=== PATIENT | female | born 1980 | race Caucasian/White ===

== ENCOUNTER 2022-07-18 09:30 | Outpatient (REF) | payer BC, SELFPAY ==
[2022-07-18 11:38] LABS: Hematocrit 38.4 % (37.0-47.0); Hemoglobin 12.6 g/dl (12.0-16.0); Mean Corpuscular HGB Conc 32.8 g/dl (31.0-35.0); Mean Corpuscular Hemoglobin 29.2 pg (27.0-33.0); Mean Corpuscular Volume 89.1 fL (80.0-98.0); Mean Platelet Volume 10.8 fL (9.4-12.3); Platelet Count 226 X10*3/uL (160-400); Red Blood Count 4.31 X10*6/uL (4.20-5.50); Red Cell Distribution Width 11.6 % (11.0-16.0); White Blood Count 5.2 X10*3/uL (4.8-10.8)
[2022-07-18 12:32] LABS: Alanine Aminotransferase 10 U/L (0-31); Alkaline Phosphatase 54 U/L (39-117); Anion Gap 11 (12-20); Aspartate Amino Transferase 16 U/L (5-31); Bilirubin Total 0.5 mg/dL (0.0-1.0); Blood Urea Nitrogen 6 mg/dL (9-16); Calcium 8.9 mg/dL (8.4-10.2); Carbon Dioxide 27 mmol/L (22-29); Chloride 105 mmol/L (96-108); Cholesterol 175 mg/dL; Estimated Glomerular Filt Rate > 60; Glucose Fasting 78 mg/dL (60-99); HDL Cholesterol 73 mg/dL; LDL Cholesterol Calculated 85 mg/dl; Potassium 3.8 mmol/L (3.3-5.1); Sodium 139 mmol/L (135-145); Total Protein 6.8 g/dL (6.5-8.0); Triglycerides 86 mg/dL
[2022-07-18 12:33] LABS: TSH reflex Free T4 1.22 uIU/mL (0.32-4.0)
== END 2022-07-18 09:31 | disposition home or self-care (01) ==
LOC: HO.WFDLDS 09:30
PROVIDERS: Visit Provider Nurse Practitioner Family
DX: Z00.00 Encounter for general adult medical examination without abnormal findings (principal); K58.9 Irritable bowel syndrome, unspecified; K21.9 Gastro-esophageal reflux disease without esophagitis
CPT/HCPCS: 36415; 80053; 80061; 84443; 85027

== ENCOUNTER 2023-09-05 11:48 | Day surgery (SDC) | payer BC, SELFPAY ==
[2023-09-03 14:51] VITALS: BMI 21.3
--- NOTE | 2023-09-04 09:03 | HO.ANESPROP2 ---
Documented by User: Sylvia Calix NP 09/04/23 09:03 HPI - Anesthesia Eval Consult details Narrative: 42yo F for Upper Endoscopy Suboxone daily PMFSH Active Problems Active Problems: All Active Problems Rash of back (Acute) Physical exam, annual (Acute) Laboratory tests ordered as part of a complete physical exam (CPE) (Acute) Irritable bowel syndrome (IBS) (Acute) Chronic GERD (Acute) Past Medical History Medical History Anxiety Broken wrist Shingles outbreak Chronic GERD Irritable bowel syndrome (IBS) Family History Family History Father Hypertension High cholesterol Mother Thyroid disease Maternal Grandmother Thyroid disease Paternal Grandmother Cancer Paternal Grandfather Cancer Sister Thyroid disease Other Asthma Surgical History Surgical History History of surgery on wrist Social History Social History Housing: House Alcohol intake: current Patient Tobacco Use Status: Never used Tobacco e-Cigarette/Vaping Use: Never Used service: No Current occupational status: employed Current occupation: [employer] Cognitive needs: No Hearing needs: No Vision needs: No Meds Allergies Allergy/AdvReac Type Severity Reaction Status Date / Time No Known Allergies Allergy Verified 06/23/22 12:17 Home Medications ?Medication ?Instructions ?Recorded ?Confirmed ?Last Taken ?Type buprenorphine 2 mg-naloxone 0.5 mg 1 tab sublingual DAILY 06/23/22 09/05/23 09/05/23 07:00 History sublingual tablet drospirenone 3 mg-ethinyl 1 tab PO DAILY 06/23/22 09/03/23 Unknown History estradiol 0.02 mg tablet (LILIAM (28)) pantoprazole 40 mg tablet,delayed 40 mg PO DAILY 09/03/23 09/03/23 Unknown History release Exam Height,Weight and Vital Signs: Height 5 ft 6 in Weight 59.988 kg Assessment and Plan Assessment Anesthesia Assessment: Chart Reviewed Documented by User: Kelly Duvall MD 09/05/23 13:08 [facility] Past Medical History Medical History Anxiety Broken wrist Shingles outbreak Chronic GERD Irritable bowel syndrome (IBS) Family History Family History Father Hypertension High cholesterol Mother Thyroid disease Maternal Grandmother Thyroid disease Paternal Grandmother Cancer Paternal Grandfather Cancer Sister Thyroid disease Other Asthma Surgical History Surgical History History of surgery on wrist History of Problems with Anesthesia: No Social History Social History Housing: House Alcohol intake: current Patient Tobacco Use Status: Never used Tobacco e-Cigarette/Vaping Use: Never Used service: No Current occupational status: employed Current occupation: [employer] Cognitive needs: No Hearing needs: No Vision needs: No Meds Allergies Allergy/AdvReac Type Severity Reaction Status Date / Time No Known Allergies Allergy Verified 06/23/22 12:17 Home Medications ?Medication ?Instructions ?Recorded ?Confirmed ?Last Taken ?Type buprenorphine 2 mg-naloxone 0.5 mg 1 tab sublingual DAILY 06/23/22 09/05/23 09/05/23 07:00 History sublingual tablet drospirenone 3 mg-ethinyl 1 tab PO DAILY 06/23/22 09/03/23 Unknown History estradiol 0.02 mg tablet (LILIAM (28)) pantoprazole 40 mg tablet,delayed 40 mg PO DAILY 09/03/23 09/03/23 Unknown History release Exam Airway Mallampati Class: II TM Dist: >3cm Neck ROM: Full Loose/Missing/Broken Teeth: No Heart: RRR Lungs: CTA Assessment and Plan Assessment Anesthesia Assessment: Anesthesia Plan Discussed Final Anesthetic Review History of Problems with Anesthesia: No NPO: Yes ASA Class: II Final Preanesthetic Review: Meds/Allgs Chart Reviewed, Consent Obtained/Reviewed and Anes Risks/Benef Reviewed Patient Risk: Low Procedure Risk: Intermediate Anesthetic Plan Anesthetic Plan: MAC: Disposition: Standard PACU
[2023-09-05 11:59] VITALS: BMI 21.7
[2023-09-05 12:14] VITALS: BP 113/50; PULSE 80; RESP 16; TEMP 36.6; O2SAT 99
[2023-09-05 12:16] LABS: UPreg QC Valid YES; Urine Pregnancy NEGATIVE (NEGATIVE)
[2023-09-05] MEDS: Lactated Ringers 1,000 ML 100 ML IVCONT (12:24)
--- NOTE | 2023-09-05 12:59 | MHC.SHP ---
Pre-Procedural Eval Section A - 24 Hr Update-Section A only Date of Service: 09/05/23 The patient is an INPATIENT: No Changes since office visit: No Cold of Flu in the past 2 weeks, No New Medical Problems, No Changes in Medication and No Patient answered all questions The patient has been examined within 24 hours of the surgical procedure. The History & Physical has been completed within 30 days and I have reviewed it.: Yes Section B - Complete if H&P > 30 days Chief Complaint: Gastro-esophageal reflux disease without esophagit Allergies: Allergies Allergy/AdvReac Type Severity Reaction Status Date / Time No Known Allergies Allergy Verified 06/23/22 12:17 Plan I have reviewed the history and physical and performed a pertinent physical examination on my patient. No changes have occurred unless specified. Time Spent With Patient Time: Total time managing care of this patient today ____ minutes.
[2023-09-05 13:25] VITALS: BP 104/52; PULSE 73; RESP 16; TEMP 36.5; O2SAT 97
[2023-09-05 13:40] VITALS: BP 115/61; PULSE 64; RESP 18; TEMP 36.5; O2SAT 100
--- NOTE | 2023-09-05 14:16 | OP_ITS ---
DATE OF SERVICE: 09/05/2023 SURGEON: Xavier Costello MD INDICATIONS: Gastroesophageal reflux disease. PREOPERATIVE DIAGNOSIS: POSTOPERATIVE DIAGNOSIS: PROCEDURE PERFORMED: Upper endoscopy with biopsy. ESTIMATED BLOOD LOSS: COMPLICATIONS: ANESTHESIA: Monitored anesthesia care. ASSISTANTS: SPECIMENS: DESCRIPTION OF PROCEDURE: A history and physical was performed. The risks and benefits of the procedure were explained to the patient and informed consent was obtained. The patient was placed in the left lateral decubitus position. The Olympus video gastroscope was introduced into the esophagus, stomach, and duodenum. Examination was performed and the scope was removed. She tolerated the procedure well and was returned to recovery area in stable condition. FINDINGS: Esophagus: The esophagus was normal. There was no esophagitis. Biopsies were obtained from the EG junction. Stomach: The stomach showed no evidence of masses, ulcers, or polyps. The antral biopsies were obtained to evaluate for H pylori. Duodenum: The bulb and 2nd portion were normal. Biopsies were obtained from the 2nd portion. IMPRESSION: Normal upper endoscopy, gastroesophageal reflux disease. RECOMMENDATION: Follow up the biopsy results. MD JOSS Yan/GILSONL / [id number]
== END 2023-09-05 13:57 | disposition home or self-care (01) ==
PROVIDERS: Nurse Practitioner; PCP Nurse Practitioner Family; Visit Provider Internal Medicine Gastroenterology
PROC: 0DJ08ZZ Inspection of Upper Intestinal Tract, Via Natural or Artificial Opening Endoscopic (ICD-10-PCS; CPT 43235; principal; 2023-09-05 13:00)
DX: K21.9 Gastro-esophageal reflux disease without esophagitis (principal); K58.0 Irritable bowel syndrome with diarrhea; F41.9 Anxiety disorder, unspecified; Z79.899 Other long term (current) drug therapy; Z87.891 Personal history of nicotine dependence
CPT/HCPCS: 43239; 81025; 88305; 88313; 88342; J1596; J2704

== ENCOUNTER 2024-05-14 10:41 | Outpatient (AMB) | payer BC, SELFPAY ==
--- NOTE | 2024-05-14 10:52 | MHC.PC.OV ---
Vital Signs 05/14/24 10:58 Height 5 ft 6 in Weight 134 lb 6 oz BMI 21.7 BP 107/56 L Blood Pressure Location Rt brachial Position Sitting Respiration 16 Pulse 65 Pulse Source Pulse Oximeter Temp 98.1 F Temp Source Oral Pulse Oximetry (%) 99 Oxygen Delivery Method Room Air Intake Visit Reasons: Requesting meds re: anxiety during flying Intake Note: patient here requesting meds for anxiety during flying. Radiographer Cardiac Catheterization Required: No Is last menstrual period known: Yes Last menstrual period: 04/28/24 Post menopausal: No Patient : No Allergies No Known Allergies Allergy (Verified 05/14/24 11:45) Medication List - Last Reconciled 05/14/24 by Bonnie Luna CNP buprenorphine-naloxone 2-0.5 mg 1 tab sublingual DAILY drospirenone-ethinyl estradiol 3-0.02 mg (LILIAM (28)) 1 tab PO DAILY pantoprazole 40 mg PO DAILY Tobacco use date assessed: 05/14/24 Dental Screening Dental Screen Date: 05/14/24 Did you have a dental visit in the last 12 months?: Yes Did you have a dental problem in the last 6 months where you did not have access to dental care?: No Was dental information given to patient?: Patient has dentist HPI HPI Comments History of Present Illness Details 43-year-old female presents with request for medication for anxiety related to flying. She does not like flying and flying to [place] this week. She took Ativan before with good effect. Hydroxyzine was ineffective. She denies acute symptoms at this time. [facility] Medical History Anxiety Broken wrist Shingles outbreak Chronic GERD Irritable bowel syndrome (IBS) Surgical History History of surgery on wrist Family History Father Hypertension High cholesterol Mother Thyroid disease Maternal Grandmother Thyroid disease Paternal Grandmother Cancer Paternal Grandfather Cancer Sister Thyroid disease Other Asthma Social History Housing: House Alcohol intake: current Patient Tobacco Use Status: Never used Tobacco e-Cigarette/Vaping Use: Never Used service: No Current occupational status: employed Current occupation: [employer] Cognitive needs: No Hearing needs: No Vision needs: No Female Reproductive History Menstrual Date of last menstrual period: 04/28/24 Questionnaire PHQ-9 Over the last 2 weeks, how often have you been bothered by any of the following problems? 1. Little interest or pleasure in doing things: not at all 2. Feeling down, depressed, or hopeless: not at all 3. Trouble falling or staying asleep, or sleeping too much: not at all 4. Feeling tired or having little energy: not at all 5. Poor appetite or overeating: not at all 6. Feeling bad about yourself - or that you are a failure or have let yourself or your family down: not at all 7. Trouble concentrating on things, such as reading the newspaper or watching television: not at all 8. Moving or speaking so slowly that other people could have noticed. Or the opposite - being so fidgety or restless that you have been moving around a lot more than usual: not at all 9. Thoughts that you would be better off or of hurting yourself in some way: not at all Total score: 0 Depression Screening Interpretation: Negative Depression Screening Done: Yes 70961 - PHQ-9 Billing: Yes Source: Developed by Drs. Juan Miguel Pop, Dionne Metcalf, Anthony Rajput and colleagues, with an educational rhoda from [employer]. Thrive Questionnaire Date Thrive assessed: 05/14/24 I am a: Patient What is your living situation today?: I have a steady place to live Within the past 12 months, did the food you bought not last and you didn't have the money to get more?: Never true Within the past 12 months, did you worry whether your food would run out before you got money to buy more?: Never true Do you have trouble paying for medicines?: No Do you have trouble getting transportation to medical appointments?: No Do you have trouble paying your heating and electricity bill?: No Do you have trouble taking care of your child, family member or friend?: No Do you have trouble with day-to-day activities such as bathing, preparing meals, shopping, managing finances, etc.?: No Are you currently unemployed and looking for a job?: No Are you interested in more education?: No Please select the resources that you would like help with: None Currently or been in a relationship where the following occur: No concerns reported THRIVE Score: 0 AUDIT C Alcohol Use Questionnaire (AUDIT-C) 1. How often do you have a drink containing alcohol?: 2-4 times a month 2. How many drinks containing alcohol do you have on a typical day when you are drinking?: 3 or 4 3. How often do you have six or more drinks on one occasion?: Never Total Score: 3 LAYLA-7 AMB Questionnaire LAYLA-7 Date LAYLA - 7 assessed: 05/14/24 Feeling nervous, anxious, or on edge: 1 = Several days Not being able to stop or control worryin = Several days Worrying too much about different things: 0 = Not at all Trouble relaxin = Not at all Being so restless that it is hard to sit still: 0 = Not at all Becoming easily annoyed or irritable: 0 = Not at all Feeling afraid as if something awful might happen: 0 = Not at all Total LAYLA-7 score (0-4 normal; 5-9 mild; 10-14 moderate; 15-21 severe): 2 Source: Developed by Drs. Juan Miguel Pop, Dionne Metcalf, Anthony Rajput and colleagues, with an educational rhoda from [employer]. LAYLA-7 Assessment Billing LAYLA-7 Assessment Tool: LAYLA-7 Assessment 56571 Review of Systems Const Details: Const Denies chills, Denies fatigue, Denies fever(s), Denies headache(s) and Denies weakness ENT Denies dizziness and Denies headache(s) Card Denies chest pain, Denies lightheadedness, Denies dyspnea and Denies other (Palpitations) Resp Denies cough, Denies dyspnea, Denies wheezing and Denies other ( shortness of breath) GI Denies abdominal pain, Denies melena, Denies hematochezia, Denies change in bowel habits, Denies dyspepsia and Denies nausea Denies hematuria and Denies dysuria Musc Denies abnormal gait, Denies myalgias, Denies arthralgias, Denies numbness and Denies tingling Skin/Breast Denies rash, Denies unusual bruising and Denies wounds Neuro Denies abnormal gait, Denies dizziness, Denies headache(s), Denies memory loss, Denies numbness, Denies Sensory deficit (Neuro), Denies tingling and Denies weakness Psych Denies anxiety, Denies depression, Denies memory loss Endo Denies cold intolerance, Denies fatigue, Denies heat intolerance, Denies polydipsia and Denies polyuria Aller/Immun Denies wheezing Physical exam (Primary Care) Vital Signs: Last Vital Signs Temp 98.1 F 05/14/24 10:58 Pulse 65 05/14/24 10:58 Resp 16 05/14/24 10:58 BP 107/56 L 05/14/24 10:58 Pulse Ox 99 05/14/24 10:58 Oxygen Delivery Method Room Air 05/14/24 10:58 BMI result Body Mass Index 21.7 Tobacco/Smoking Status: Tobacco use Status Tobacco use date assessed 05/14/24 05/14/24 11:01 Patient Tobacco Use Status Never used Tobacco 05/14/24 11:01 e-Cigarette/Vaping Use Never Used 05/14/24 11:01 PHQ-9: PHQ-9 Score PHQ-9: Total score 0 05/14/24 11:01 Depression Screening Interpretation: Negative Thrive Assessment: Date of Thrive Assessment Date Thrive assessed 05/14/24 05/14/24 11:01 Currently or been in a relationship where the following occur: No concerns reported Const Other: General: no acute distress and well developed Nutritional Appearance: well nourished Orientation/consciousness: patient oriented x3 HENMT Head: Yes normocephalic and Yes atraumatic Eyes General: appearance normal, both eyes and all related structures Pupils: Equal, round and reactive pupils present EOM: EOMs intact bilaterally Resp Effort & Inspection: normal respiratory effort Auscultation: clear to auscultation bilaterally Cardio Rate: regular rate Rhythm: regular rhythm Heart sounds: S1 normal heart sound present, S2 normal heart sound present, no gallops, no murmurs and no rubs GI Palpation (GI): No Abdominal aortic bruit present, Soft to palpation, nontender, No hepatosplenomegaly present and No Rebound tenderness present Auscultation: normal bowel sounds General: Yes no CVA tenderness Back/Spine/Pelvis Back: no CVA tenderness Cervical Spine: cervical ROM normal and No Cervical spine tenderness Thoracic/Lumbar Spine: thoraco-lumbar ROM normal, No pain with thoraco-lumbar ROM, No thoracic spinal tenderness and No lumbar spinal tenderness Extrem General: Yes normal to inspection, No edema and No calf tenderness Skin General: warm and dry. Normal skin color. Normal skin turgor Lesions: no lesions Rashes: no rashes Trauma: no lacerations or abrasions Wounds: no wounds Nails: normal Neuro General: patient oriented x3, gait normal and no focal neuro deficit Cranial nerves: Yes Equal, round and reactive pupils present Cognition (Neuro): normal cognition Gait exam (Neuro): Normal gait present Sensory Exam: No Sensory deficit (Neuro) Psych Appearance: grossly normal Affect: normal affect Attitude: cooperative Thought process: Normal thought process present Coding Level of Care Code Est Pt Level 3 (47100) Diagnoses Anxiety with flying F40.243 Laboratory tests ordered as part of a complete physical exam (CPE) Z00.00 Additional Codes LAYLA-7 Assessment Billing - LAYLA-7 Assessment Tool: LAYLA-7 Assessment 54009 ([id number]) PHQ-9 - 68880 - PHQ-9 Billing: Yes ([id number]) Assessment & Plan Assessment & Plan (1) Anxiety with flying: Code(s): F40.243 - Fear of flying Category: Medical Plan: Reports anxiety with flying and that she is flying to [place] over the weekend. Ativan 0.5 mg twice daily as needed ordered; advised take as prescribed. Perform lab work and follow-up an extended physical exam. Verbalized understanding and agreed with the treatment plan. (2) Laboratory tests ordered as part of a complete physical exam (CPE): Code(s): Z00.00 - Encounter for general adult medical examination without abnormal findings Category: Medical Plan: Fasting labs ordered as part of a complete physical exam. Advised to fast for at least 10 hours before getting labs drawn. May drink water Verbalized understanding and agreed with treatment plan. Orders: Orders Complete Blood Count Auto Diff Today Z00.00 - Encounter for general adult medical examination without abnormal findings Comprehensive [place]. Panel Fast Today K58.9 - Irritable bowel syndrome, unspecified Lipid Panel Today Z00.00 - Encounter for general adult medical examination without abnormal findings Microalbumin, Random (w Creat) Today Z00.00 - Encounter for general adult medical examination without abnormal findings Vitamin D 25-OH Total Today Z00.00 - Encounter for general adult medical examination without abnormal findings TSH reflex Free T4 Today Z00.00 - Encounter for general adult medical examination without abnormal findings UA CC w/rflx Micro + Cult Today Z00.00 - Encounter for general adult medical examination without abnormal findings Medications: New lorazepam (Ativan) 0.5 mg PO BID PRN 4 tabs 0RF anxiety
[2024-05-14 10:58] VITALS: BP 107/56; PULSE 65; RESP 16; TEMP 36.7; O2SAT 99; BMI 21.7
--- OUTSIDE RECORDS SUMMARY | 2024-05-14 13:14 | XMS_ITS ---
Author Organization [facility] Address [address] [place] [phone] Care Team Providers Care Data Software Engineer Name Role Phone Bonnie Luna N.P. Primary Care Provider Ajith Costello Jr, Xavier Savage REASON FOR VISIT pathology Encounters Encounter Location Date Provider Diagnosis [facility] [address] [place] [phone] 09/12/2023 Xavier Costello Jr PLAN OF TREATMENT No Information
--- OUTSIDE RECORDS SUMMARY | 2024-05-14 13:14 | XMS_ITS ---
Author Organization [facility] Address [address] [place] [phone] Care Team Providers Care Chemical Plant Technical Director Name Role Phone Bonnie Luna N.P. Primary Care Provider Ajith Costello Jr, Xavier Savage REASON FOR VISIT REFLUX Encounters Encounter Location Date Provider Diagnosis [facility] [address] [place] [phone] 10/24/2023 Xavier Costello Jr PLAN OF TREATMENT No Information
--- OUTSIDE RECORDS SUMMARY | 2024-05-14 13:14 | XMS_ITS ---
Author Organization [facility] Address [address] [place] [phone] Care Team Providers Care Upholstery Handler Name Role Phone Bonnie Luna N.P. Primary Care Provider Ajith Costello Jr, Xavier Savage REASON FOR VISIT refill pantoprazole MEDICATIONS Medication SIG (Take, Route, Frequency, Duration) Notes Start Date End Date Status Pantoprazole Sodium 40 MG 1 tablet Orall y Once a day for 90 days 07/18/2023 Active Encounters Encounter Location Date Provider Diagnosis [facility] [address] [place] [phone] 01/31/2024 Xavier Costello Jr PLAN OF TREATMENT Medication Medication Name Sig Start Date Stop Date Notes Pantoprazole Sodium 40 MG 1 tablet Orall y Once a day for 90 days 07/18/2023
--- OUTSIDE RECORDS SUMMARY | 2024-05-14 13:15 | XMS_ITS | Patient Health Record ---
Author Organization [facility] Address [address] [place] [address] Care Team Providers Care Finisher Wallboard And Plasterboard Name Role Phone Bonnie Luna N.P. Primary Care Provider Ajith Costello Jr Xavier Unavailable ALLERGIES No Known Allergies RESULTS Component Value Reference Range Notes Ur Preg Test Reviewed date:09/06/2023 09:04:58 AM Interpretation: Performing Lab:[facility], [address] [place] [phone] Notes/Report: Urine NEGATIVE NEGATIVE This test was developed to detect early . False negative results may occur after the 5th - 7th week of when using this test method. If clinically indicated, consider a serum hCG. Pathology Reviewed date:09/12/2023 09:18:36 AM Interpretation: Performing Lab:[facility], [address] [place] [phone] Notes/Report: REASON FOR REFERRAL No Information MEDICATIONS Medication SIG (Take, Route, Frequency, Duration) Notes Start Date End Date Status LILIAM Active Pantoprazole Sodium 40 MG 1 tablet Orall y Once a day for 90 days 07/18/2023 Active Buprenorphine HCl-Naloxone HCl 2-0.5 MG Sublingual for 28 Active IMMUNIZATIONS Vaccine Route Administration Date Status Comme nts Influenza Unknown 08/06/2023 Refused SOCIAL HISTORY Tobacco Use: Social History Observation Description Date Details (start date - stop date) Former Smoker NA - NA Sex Assigned At : Social History Observation Description Sex Assigned At Unknown Tobacco Use/Smoking Question Answer Notes Patient is a former smoker Alcohol Screen Question Answer Notes Did you have a drink contain ing alcohol in the past year? Yes How often did you have a dri nk containing alcohol in the past year? 2 to 4 times a month (2 points) How many drinks did you have on a typical day when you were drinking in the past year? 1 or 2 drinks (0 point) How often did you have 6 or more drinks on one occasion in the past year? Never (0 point) Points 2 Interpretation Negative PROBLEMS Problem Type ICD Code Onset Dates Problem Status W/U Status Risk SNOMED Code Notes Problem Gastro-esophageal reflux disease without esophagitis (K21.9) Active confirmed Gastro-esophag eal reflux disease without esophagitis (178163394) Problem Irritable bowel syndrome, unspecified type (K58.9) Active confirmed 70626120 Problem Gastroesophageal reflux disease, unspecified whether esophagitis present (K21.9) Active confirmed [id number] VITAL SIGNS Temperature 97.8 degrees Fahrenheit 08/06/2023 Blood pressure diastolic 00 mm Hg 08/06/2023 Height 66 in 08/06/2023 Blood pressure systolic 000 mm Hg 08/06/2023 Weight 132 lb 4 oz lbs 08/06/2023 BMI 21.34 kg/m2 08/06/2023 Encounters Encounter Location Date Provider Diagnosis [facility] [address], [place] [phone] 08/22/2023 Xavier Costello Jr [facility] Outpatient [address], [place] [phone] 09/05/2023 Xavier Costello Jr Gastro-esophageal reflux disease without esophagitis K21.9 [facility] [address] [place] [phone] 10/24/2023 Xavier Costello Jr [facility] [address] [place] [phone] 08/06/2023 Xavier Costello Jr Gastroesophageal reflux disease, unspecified whether esophagitis present K21.9 [facility] [address] [place] [phone] 07/17/2023 Xavier Costello Jr [facility] [address] [place] [phone] 07/25/2023 Xavier Costello Jr [facility] [address] [place] [phone] 08/02/2023 Xavier Costello Jr [facility] [address] [place] [address] 09/12/2023 Xavier Costello Jr [facility] [address] [place] [address] 01/31/2024 Xavier Costello Jr ASSESSMENTS Encounter Date Diagnosis Assessment Notes Treatment Notes Treatment Clinical Notes 09/05/2023 Gastro-esophageal reflux disease without esophagitis (ICD-10 - K21.9) 08/06/2023 Gastroesophageal ref lux disease, unspecified whether esophagitis present (ICD-10 - K21.9) PLAN OF TREATMENT Future Test Test Name Order Date UPPER GI ENDOSCOPY 08/06/2023 Insurance Providers Payer Name Payer Address Payer Phone Subscriber Number Group Number Insured Name Patient Relationship to Insured Coverage Start Date Coverage End Date [facility] [address] [place] [address] [phone] [id number] GREG CHRISTIAN Self - patient is the insured MEDICAL (GENERAL) HISTORY Medical History History ICD Code Irritable bowel syndrome with diarrhea p redominance anxiety Gastroesophageal reflux disease Surgical History Surgery Date(Month/Year)
== END 2024-05-14 11:56 | disposition home or self-care (01) ==
PROVIDERS: PCP Nurse Practitioner Family; Visit Provider Nurse Practitioner Family
DX: F40.243 Fear of flying (principal); Z00.00 Encounter for general adult medical examination without abnormal findings

== ENCOUNTER → 2024-05-14 10:41 | Outpatient (BNVA) | payer BC, SELFPAY | PROVIDERS: PCP Nurse Practitioner Family; Visit Provider Nurse Practitioner Family | DX: F40.243 Fear of flying (principal) | CPT/HCPCS: 96127 ==

== ENCOUNTER 2024-06-03 09:33 | Outpatient (REF) | payer BC, SELFPAY ==
[2024-06-03 11:20] LABS: MANUAL DIFF FLAG NO
[2024-06-03 11:33] LABS: Basophils Absolute Auto 0.1 X10*3/uL (0.0-0.2); Basophils Percent Auto 1.1 % (0-2); Eosinophils Absolute Auto 0.1 X10*3/uL (0.0-0.4); Hematocrit 38.3 % (37.0-47.0); Hemoglobin 11.9 g/dl (12.0-16.0); Imm Gran Abs Auto 0.01 X10*3/uL (0.00-0.03); Imm Gran Pct Auto 0.2 % (0.0-0.4); Lymphocytes Absolute Auto 2.8 X10*3/uL (1.2-4.9); Lymphocytes Percent Auto 42.3 % (20-40); Mean Corpuscular HGB Conc 31.1 g/dl (31.0-35.0); Mean Corpuscular Hemoglobin 27.1 pg (27.0-33.0); Mean Corpuscular Volume 87.2 fL (80.0-98.0); Mean Platelet Volume 10.2 fL (9.4-12.3); Monocytes Absolute Auto 0.5 X10*3/uL (0.1-1.2); Monocytes Percent Auto 7.1 % (2-11); Neutrophils Absolute Auto 3.1 x10*3/uL (2.0-8.3); Neutrophils Percent Auto 47.3 % (45-73); Platelet Count 287 X10*3/uL (160-400); Red Blood Count 4.39 X10*6/uL (4.20-5.50); Red Cell Distribution Width 12.1 % (11.0-16.0); White Blood Count 6.5 X10*3/uL (4.8-10.8)
[2024-06-03 11:49] LABS: Alanine Aminotransferase 10 U/L (0-31); Alkaline Phosphatase 70 U/L (39-117); Anion Gap 12 (12-20); Aspartate Amino Transferase 16 U/L (5-31); Bilirubin Total 0.4 mg/dL (0.0-1.0); Blood Urea Nitrogen 12 mg/dL (9-16); Calcium 9.1 mg/dL (8.4-10.2); Carbon Dioxide 28 mmol/L (22-29); Chloride 104 mmol/L (96-108); Cholesterol 176 mg/dL (<200); Estimated Glomerular Filt Rate > 60; Glucose Fasting 75 mg/dL (60-99); HDL Cholesterol 77 mg/dL (>40); LDL Cholesterol Calculated 81 mg/dL (<100); Potassium 3.9 mmol/L (3.3-5.1); Sodium 140 mmol/L (135-145); Total Protein 7.9 g/dL (6.5-8.0); Triglycerides 93 mg/dL (<150)
[2024-06-03 12:08] LABS: TSH reflex Free T4 1.46 uIU/mL (0.32-4.0); Vitamin D 25-OH Total 30.8 ng/mL (>30)
[2024-06-03 15:18] LABS: Appearance Urine Clear; Color Urine Yellow; Glucose Urine UA Negative (Negative); Leukocyte Esterase Urine Trace (Negative); Nitrite Urine Negative (Negative); Specific Gravity - Urine 1.015 (1.005-1.025); UMIC TRIGGER UACC YES; Urine Blood Trace (Negative); Urine Ketones Negative (Negative); Urine Protein Negative (Neg-Trace)
[2024-06-03 15:24] LABS: Bacteria Urine None Seen (None Seen); Hyaline Casts Urine 0-2 /LPF (0-2); RBC Urine 0-2 /HPF (0-2); WBC Urine 0-5 /HPF (0-5)
[2024-06-03 15:45] LABS: Creatinine Urine 117.89 mg/dL; Microalbum/Creatinine Ratio Ur 24.5 ug/mg cr (<30)
== END 2024-06-03 09:34 | disposition home or self-care (01) ==
LOC: HO.WFDLDS 09:33
PROVIDERS: Visit Provider Nurse Practitioner Family
DX: Z00.00 Encounter for general adult medical examination without abnormal findings (principal); K58.9 Irritable bowel syndrome, unspecified
CPT/HCPCS: 36415; 80053; 80061; 81001; 82043; 82306; 82570; 84443; 85025

== ENCOUNTER → 2024-06-09 09:52 | Outpatient (BNVA) | payer BC, SELFPAY | PROVIDERS: PCP Nurse Practitioner Family; Visit Provider Nurse Practitioner Family | DX: Z00.00 Encounter for general adult medical examination without abnormal findings (principal) | CPT/HCPCS: 96127 ==

== ENCOUNTER → 2024-06-09 09:52 | Outpatient (AMB) | payer BC, SELFPAY ==
--- NOTE | 2024-06-09 09:58 | A.OFFPC_ITS ---
Vital Signs 06/09/24 10:13 Height 5 ft 6 in Weight 135 lb BMI 21.8 BP 110/54 L Blood Pressure Location Lt brachial Position Sitting Respiration 16 Pulse 68 Pulse Source Pulse Oximeter Temp 98.1 F Temp Source Oral Pulse Oximetry (%) 100 Oxygen Delivery Method Room Air Intake Visit Reasons: CPE Intake Note: patient here for CPE Mental Health Nurse Practitioner Required: No Is last menstrual period known: Yes Last menstrual period: 05/26/24 Post menopausal: No Patient : No Allergies No Known Allergies Allergy (Verified 06/09/24 10:29) Medication List - Last Reconciled 06/09/24 by Bonnie Luna CNP buprenorphine-naloxone 2-0.5 mg 1 tab sublingual DAILY drospirenone-ethinyl estradiol 3-0.02 mg (LILIAM (28)) 1 tab PO DAILY lorazepam (Ativan) 0.5 mg PO BID PRN pantoprazole 40 mg PO DAILY Tobacco use date assessed: 06/09/24 Dental Screening Dental Screen Date: 06/09/24 Did you have a dental visit in the last 12 months?: Yes Did you have a dental problem in the last 6 months where you did not have access to dental care?: No Was dental information given to patient?: Patient has dentist HPI HPI Comments History of Present Illness Details 43-year-old female presents for an exten ded physical exam. Acute issue(s) - None Past Medical History - GERD, IBS Social History - Former smoker, quit 10 years ago. Hist ory of vaping nicotine, quit 10 years ago. Drinks 2 glasses of wine once weekly. Denies recreational drug use - Has been making healthy dietary choice s. Exercises routinely. Generally sleep well Health maintenance - Last eye exam was several years ago. Referred to Ophthalmology for routine eye care - Last dental visit was last week. She f ollows up with her dentist every 6 months - Last tetanus vaccine was more than 10 years ago; declines Tdap vaccine - Has not been vaccinated for the flu ; declines vaccination - Last pap smear test was in 02/2024 mavis [facility]: Normal. Record not available. 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 - Last mammogram was 2 months ago at [facility]: Normal [facility] Medical History Anxiety Broken wrist Shingles outbreak Chronic GERD Irritable bowel syndrome (IBS) Surgical History History of surgery on wrist Family History Father Hypertension High cholesterol Mother Thyroid disease Maternal Grandmother Thyroid disease Paternal Grandmother Cancer Paternal Grandfather Cancer Sister Thyroid disease Other Asthma Social History Housing: House Alcohol intake: current Patient Tobacco Use Status: Former Tobacco user e-Cigarette/Vaping Use: Never Used service: No Current occupational status: employed Current occupation: [employer] Current occupational exposures/hazards: No Cognitive needs: No Hearing needs: No Vision needs: No Female Reproductive History Menstrual Date of last menstrual period: 05/26/24 Questionnaire PHQ-9 Over the last 2 weeks, how often have you been bothered by any of the following problems? 1. Little interest or pleasure in doing things: not at all 2. Feeling down, depressed, or hopeless: not at all 3. Trouble falling or staying asleep, or sleeping too much: not at all 4. Feeling tired or having little energy: not at all 5. Poor appetite or overeating: several days 6. Feeling bad about yourself - or that you are a failure or have let yourself or your family down: not at all 7. Trouble concentrating on things, such as reading the newspaper or watching television: not at all 8. Moving or speaking so slowly that other people could have noticed. Or the opposite - being so fidgety or restless that you have been moving around a lot more than usual: not at all 9. Thoughts that you would be better off or of hurting yourself in some way: not at all Total score: 1 Depression Screening Interpretation: Negative Depression Screening Done: Yes 24190 - PHQ-9 Billing: Yes Source: Developed by Drs. Juan Miguel Pop, Dionne Metcalf, Anthony Rajput and colleagues, with an educational rhoda from [employer]. Thrive Questionnaire Date Thrive assessed: 06/09/24 I am a: Patient What is your living situation today?: I have a steady place to live Within the past 12 months, did the food you bought not last and you didn't have the money to get more?: Never true Within the past 12 months, did you worry whether your food would run out before you got money to buy more?: Never true Do you have trouble paying for medicines?: No Do you have trouble getting transportation to medical appointments?: No Do you have trouble paying your heating and electricity bill?: No Do you have trouble taking care of your child, family member or friend?: No Do you have trouble with day-to-day activities such as bathing, preparing meals, shopping, managing finances, etc.?: No Are you currently unemployed and looking for a job?: No Are you interested in more education?: No Please select the resources that you would like help with: None Currently or been in a relationship where the following occur: No concerns reported THRIVE Score: 0 AUDIT C Alcohol Use Questionnaire (AUDIT-C) 1. How often do you have a drink containing alcohol?: 2-4 times a month 2. How many drinks containing alcohol do you have on a typical day when you are drinking?: 1 or 2 3. How often do you have six or more drinks on one occasion?: Less than monthly Total Score: 3 Score Reviewed/Action Taken: Yes LAYLA-7 AMB Questionnaire LAYLA-7 Date LAYLA - 7 assessed: 06/09/24 Feeling nervous, anxious, or on edge: 0 = Not at all Not being able to stop or control worryin = Not at all Worrying too much about different things: 0 = Not at all Trouble relaxin = Not at all Being so restless that it is hard to sit still: 0 = Not at all Becoming easily annoyed or irritable: 0 = Not at all Feeling afraid as if something awful might happen: 0 = Not at all Total LAYLA-7 score (0-4 normal; 5-9 mild; 10-14 moderate; 15-21 severe): 0 Source: Developed by Drs. Juan Miguel Pop, Dionne Metcalf, Anthony Rajput and colleagues, with an educational rhoda from [employer]. LAYLA-7 Assessment Billing LAYLA-7 Assessment Tool: LAYLA-7 Assessment 53246 Review of Systems Const Details: Denies chills, Denies fatigue, Denies fever(s), Denies headache(s) and Denies weakness HEENT Denies change in vision, Denies dizziness, Denies headache(s), Denies hearing loss, Denies nasal congestion, Denies sinus pain, Denies sinus pressure and Denies sore throat Card Denies chest pain, Denies lightheadedness, Denies dyspnea and Denies other (palpitations) Resp Denies cough, Denies dyspnea and Denies wheezing GI Denies abdominal pain, Denies melena, Denies hematochezia, Denies change in bowel habits, Denies dyspepsia and Denies nausea Denies hematuria and Denies dysuria Musc Denies abnormal gait, Denies myalgias, Denies arthralgias, Denies numbness and Denies tingling Skin/Breast Denies rash, Denies unusual bruising and Denies wounds Neuro Denies abnormal gait, Denies dizziness, Denies headache(s), Denies memory loss, Denies numbness, Denies Sensory deficit (Neuro), Denies tingling and Denies weakness Psych Denies anxiety, Denies depression and Denies memory loss Endo Denies cold intolerance, Denies fatigue, Denies heat intolerance, Denies polydipsia and Denies polyuria Ángel/Lymph Denies easy bleeding and Denies easy bruising Aller/Immun Denies wheezing Physical exam (Primary Care) Tobacco/Smoking Status: Tobacco use Status Tobacco use date assessed 05/14/24 06/09/24 09:58 Patient Tobacco Use Status Never used Tobacco 06/09/24 09:58 e-Cigarette/Vaping Use Never Used 06/09/24 09:58 Depression Screening Interpretation: Negative Thrive Assessment: Date of Thrive Assessment Date Thrive assessed 05/14/24 06/09/24 09:58 Currently or been in a relationship where the following occur: No concerns reported Const Other: General: no acute distress, well developed, alert and awake Nutritional Appearance: well nourished Orientation/consciousness: patient oriented x3 HENMT Head: Yes normocephalic and Yes atraumatic Ears: hearing grossly normal bilaterally and TM's normal bilaterally General nose exam: Normal external nose present and Normal nares present Mouth: Normal oral and palatal mucosa present and moist mucous membranes Teeth and gingiva: dentition normal Throat: Yes oropharynx normal Eyes Pupils: Equal, round and reactive pupils present and Pupil accommodation reflex normal EOM: EOMs intact bilaterally Neck Neck: Yes normal visual inspection, Yes no lymphadenopathy and Yes trachea midline Thyroid: Thyroid normal Carotids: no bruits Lymphatic: no lymphadenopathy noted Chest Chest palpation & inspection: normal inspection of the chest Resp Effort & Inspection: normal respiratory effort Auscultation: clear to auscultation bilaterally Cardio Rate: regular rate Rhythm: regular rhythm Heart sounds: S1 normal heart sound present, S2 normal heart sound present, no gallops, no murmurs and no rubs Bruits: no abdominal aortic bruits and no carotid bruits GI Palpation (GI): No Abdominal aortic bruit present, Soft to palpation, nontender, No hepatosplenomegaly present and No Rebound tenderness present Auscultation: normal bowel sounds General: Yes no CVA tenderness Back/Spine/Pelvis Back: no CVA tenderness Cervical Spine: cervical ROM normal and No Cervical spine tenderness Thoracic/Lumbar Spine: thoraco-lumbar ROM normal, No pain with thoraco-lumbar ROM, No thoracic spinal tenderness and No lumbar spinal tenderness Skin General: warm and dry. Normal skin color. Normal skin turgor Lesions: no lesions Rashes: no rashes Trauma: no lacerations or abrasions Wounds: no wounds Nails: normal Neuro General: patient oriented x3, gait normal and CN's II-XI intact bilaterally Cranial nerves: Yes Equal, round and reactive pupils present Cognition (Neuro): normal cognition Gait exam (Neuro): Normal gait present Motor exam (neuro): 5/5 motor strength present throughout Sensory Exam: No Sensory deficit (Neuro) Deep tendon reflexes (DTR's): Right patellar reflex intensity grade: 2+ and Left patellar reflex intensity grade: 2+ Extrem General: Yes normal to inspection, No edema and No calf tenderness Psych Appearance: grossly normal Affect: normal affect Attitude: cooperative Thought process: Normal thought process present Coding Level of Care Code Est Pt Prev Care 40-64y(40299) Diagnoses Physical exam, annual Z00.00 Additional Codes LAYLA-7 Assessment Billing - LAYLA-7 Assessment Tool: LAYLA-7 Assessment 09573 ([id number]) PHQ-9 - 64264 - PHQ-9 Billing: Yes ([id number]) Assessment & Plan Assessment & Plan (1) Physical exam, annual: Code(s): Z00.00 - Encounter for general adult medical examination without abnormal findings Category: Medical Plan: Normal physical exam of 43-year-old female. No significant functional limitation noted. Recent labs reviewed with the patient; unremarkable findings. Healthy diet and routine exercise encouraged. Follow-up for an extended physical exam for a year from today. Return sooner with symptoms or concerns. Verbalized understanding and agreed with treatment plan.
[2024-06-09 10:13] VITALS: BP 110/54; PULSE 68; RESP 16; TEMP 36.7; O2SAT 100; BMI 21.8
== END ==
LOC: HO.HMCFM 09:53
PROVIDERS: PCP Nurse Practitioner Family; Visit Provider Nurse Practitioner Family
DX: Z00.00 Encounter for general adult medical examination without abnormal findings (principal)